=== PATIENT | female | born 1990 | race Caucasian/White ===

== ENCOUNTER 2017-11-25 07:13 | Inpatient (IN) | payer OTHER ==
[~2017-11-25] VITALS: Ht 170.2 cm; Wt 80.7 kg
[~2017-11-25 07:13] MED LIST: ACET-1718 PO; GING250C3 PO; IBUP800T37 PO; LACT1CAP6 PO; ONDA4TAB PO; ONDA4TAB97 PO; POLY17PO25 PO; PREN-127 PO; PROM25SU9 RC
[2017-12-08] MEDS ORDERED: DLR(*) 1000 ML BAG 1,000 ML IV SCH ×2 (04:59)
[2017-12-08] MEDS ORDERED: LR(*) 1000 ML BAG 1,000 ML IV SCH (04:59)
[2017-12-08] MEDS ORDERED: OXYTOCIN 30 UNIT/D5LR 500 ML 500 ML IV PRN ×3 (04:59→07:20)
[2017-12-08] MEDS ORDERED: FAMOTIDINE(*) 20MG/50ML PREMIX 50 ML IVPB PRN (04:59)
[2017-12-08] MEDS ORDERED: ONDANSETRON 4 MG/2 ML VIAL IVP PRN (05:00)
[2017-12-08] MEDS ORDERED: LIDOCAINE/SOD BICARB 8.4% SYR SC PRN (05:00)
[2017-12-08] MEDS ORDERED: TERBUTALINE SULF 1 MG/ML VIAL SUBQ PRN (05:00)
[2017-12-08] MEDS ORDERED: METOCLOPRAMIDE 10 MG/2 ML SDV IVP PRN (05:00)
[2017-12-08] MEDS ORDERED: MISOPROSTOL 25 MCG CAP PV PRN (05:00)
[2017-12-08] MEDS ORDERED: cefOXitin/DEX(*) 2GM/50ML PREM 50 ML IVPB PRN (05:00)
[2017-12-08] MEDS ORDERED: LIDOCAINE 1% LOCAL 300 MG/30ML INJ PRN (05:00)
[2017-12-08] MEDS ORDERED: ACETAMINOPHEN 500 MG TAB PO PRN (05:00)
[2017-12-08] MEDS ORDERED: fentaNYL CITR 100 MCG/2 ML AMP IVP PRN (05:00)
[2017-12-08 06:00] VITALS: BP 122/67; Ht 170.2 cm; Wt 80.7 kg
[2017-12-08 06:14] LABS: PLATELET COUNT, AUTOMATED 121 K/uL (150-450)
--- NOTE | 2017-12-08 07:14 | History & Physical ---
History of Present Illness Age of Patient: 27 : 3 Para or TPAL: 2002 EDC per LMP: Nov 25, 2017 Estimated Gestational Age: 41.6 Chief Complaint Uterine contractions. History of Present Illness The patient is a 27 year old 3 para 2001 admitted at 41 6/7 weeks estimated gestational age with an estimated date of delivery 11/25/17. Patient is admitted with complaint of contractions. No vaginal bleeding. Good movement and occasional contractions. She was evaluated for active labor. She had an uncomplicated course. Her record was reviewed. History Allergies: Coded Allergies: No Known Drug Allergies (Unverified , 11/12/15) Social History: No T/E/D. . Med Rec Home Meds Reported Medications Ondansetron Hcl (ZOFRAN) 4 Mg Tablet, 4 MG PO Q12H, TAB 11/17/17 Yesenia Root (YESENIA) 250 Mg Capsule, 250 MG PO, CAPSULE 11/17/17 Polyethylene Glycol 3350 (MIRALAX) 17 Gm Powd.pack, 17 GM PO PRN, PKT 11/12/15 Lactobacillus Combination No.4 (PROBIOTIC) 1 Each Capsule, 1 EACH PO QDAY, CAPSULE 11/12/15 Vits W-Ca,Fe,Fa(<1MG) ( VITAMINS) 1 Each Tablet, 1 EACH PO DAILY, TAB 11/12/15 Exam General Exam Cardiovascular: Regular Rate and Rhythm Respiratory: Clear to Auscultation Abdomen: Gravid - Non-Tender Extremities: No Edema Cervical Dialation: 6 (RN) Cervical Effacement (%): 100 Presentation: Vertex Uterine Contractions(Q min): 4 Fetus Heart Tones: 120 FHT Category: I Medical Decision Making Data Points Result Diagram: 12/08/17 0544 Assessment and Plan Problems: (1) Active labor at term Assessment & Plan: SPONTANEOUS LABOR, WILL MONITOR FOR CERVICAL CHANGE Copies to: ANGELINA VANCE MD, JOHN MD Dec 08, 2017 07:14
--- NOTE | 2017-12-08 10:33 | Labor Progress Note ---
Labor Subjective Progress Notes Subjective FEELING CONTRACTIONS Vaginal Discharge/Fluid: Clear Fluid Labor Pain: Moderate Labor Objective Vital Signs Vital Signs Date Time Temp Pulse Resp B/P (MAP) Pulse Ox O2 Delivery O2 Flow Rate FiO2 12/08/17 06:00 97.7 87 18 122/67 (85) 96 Room Air Cervical Dialation: 9 Cervical Effacement (%): 100 Cervical Consistency: Soft Cervical Position: Anterior Station: +1 Uterine Contractions(Q min): 4 Uterine Contraction Strength: Strong Fetus Heart Tones: 130 Heart Tone Variabilty: Moderate FHT Accelerations: 15X15 FHT Category: I Other Result Diagram: 12/08/17 0544 Assessment and Plan Problems: (1) Active labor at term Assessment & Plan: AROM CLEAR FLUID, ANTICIPATED VAGINAL DELIVERY ANGELINA VANCE MD Dec 08, 2017 10:33
[2017-12-08] MEDS ORDERED: METHYLERGONOVINE MAL 0.2MG/ML ONE (10:53)
--- NOTE | 2017-12-08 11:00 | OB Delivery Note ---
Delivery Note Vaginal Delivery Type: Spont. Vaginal Delivery Delivery Date: Dec 08, 2017 Delivery Time: 10:43 Estimated Gestational Age(wks): 41 6/7 Infant Sex: Male Weight (gms): 3984 Marcy Apgars: 1 Minute (9), 5 Minute Estimated Blood Loss: 400 Notes: SPONTANEOUS LABOR, AROM CLEAR FLUID PROGRESSED TO COMPLETE, PUSHED EFFECTIVELY, DELIVERY WITHOUT COMPLICATIONS. PITOCIN DELAYED ADMINISTRATION, METHERGINE GIVEN FOR ATONY, WITH MASSAGE UTERINE TONE IMPROVED. NO LACERATIONS TOLERATED WELL Forensic Manager in Attendence: No Copies to: ANGELINA VANCE MD, JOHN MD Dec 08, 2017 11:00
[2017-12-08] MEDS ORDERED: HYDR2TAB4 PO (11:01)
[2017-12-08] MEDS ORDERED: IBUP800T37 PO (11:01)
--- NOTE | 2017-12-08 11:16 | OB/GYN Discharge Summary ---
Discharge Summary Reason for Hosp/Final Diag: (1) Active labor at term (2) care following vaginal delivery Hospital Course & Plan: Vaginal delivery, on day 1, Pain controlled, Tolerating diet and activity. Baby . Normal lochia. Lates Vital Signs Vital Signs Date Time Temp Pulse Resp B/P (MAP) Pulse Ox O2 Delivery O2 Flow Rate FiO2 12/08/17 06:00 97.7 87 18 122/67 (85) 96 Room Air Weight (Pounds): 178 Result Diagram: 12/08/17 0544 Condition: Improved Discharge: Home, Self Assisted Meds Active Scripts Ibuprofen (IBUPROFEN) 800 Mg Tablet, 1 TAB PO Q8H, #30 TAB 0 Refills Take with food every 8 hours. Prov:ANGELINA HUNT MD 12/08/17 Hydromorphone Hcl (HYDROMORPHONE HCL) 2 Mg Tablet, 2-4 MG PO Q4H for PAIN, #20 TAB 0 Refills Prov:ANGELINA HUNT MD 12/08/17 Reported Medications Ondansetron Hcl (ZOFRAN) 4 Mg Tablet, 4 MG PO Q12H, TAB 11/17/17 Yesenia Root (YESENIA) 250 Mg Capsule, 250 MG PO, CAPSULE 11/17/17 Polyethylene Glycol 3350 (MIRALAX) 17 Gm Powd.pack, 17 GM PO PRN, PKT 11/12/15 Lactobacillus Combination No.4 (PROBIOTIC) 1 Each Capsule, 1 EACH PO QDAY, CAPSULE 11/12/15 Vits W-Ca,Fe,Fa(<1MG) ( VITAMINS) 1 Each Tablet, 1 EACH PO DAILY, TAB 11/12/15 Follow up with: Dr. Hunt [phone] Follow up in: 6 wks PP or PO Discharge Diet: As Tolerates Discharge Activity: Pelvic Rest Copies to: ANGELINA HUNT MD, JOHN MD Dec 08, 2017 11:16
[2017-12-08 12:28] VITALS: BP 123/60
[2017-12-08] MEDS ORDERED: MAGNESIUM HYDROXIDE* 30ML UDCP PO PRN (13:00)
[2017-12-08] MEDS ORDERED: BENZOCAINE 20% 60 ML BTL TP PRN (13:00)
[2017-12-08] MEDS ORDERED: GLYCERIN/WITCH HAZEL LEAF 1 PK TP PRN (13:00)
[2017-12-08] MEDS ORDERED: HYDROmorphone HCL 2 MG TAB PO PRN (13:00)
[2017-12-08] MEDS ORDERED: HYDROCORTISONE 2.5% CR 30GM TB PR PRN (13:00)
[2017-12-08] MEDS ORDERED: LANOLIN OINT 7 GM TUBE TP PRN (13:00)
[2017-12-08] MEDS ORDERED: ACETAMINOPHEN 325 MG TAB PO PRN (13:00)
[2017-12-08] MEDS: IBUPROFEN 800 MG TAB PO SCH ×2 (13:24→21:33)
[2017-12-08 13:25] VITALS: BP 102/52
[2017-12-08 17:00] VITALS: BP 118/62
[2017-12-08 19:15] VITALS: BP 104/57
[2017-12-08] MEDS: DOCUSATE CALCIUM 240 MG CAP PO SCH (20:49)
[2017-12-08 23:30] VITALS: BP 118/58
[2017-12-09 02:30] VITALS: BP 112/54
[2017-12-09] MEDS: IBUPROFEN 800 MG TAB PO SCH (06:05)
[2017-12-09 08:00] VITALS: BP 108/57
--- NOTE | 2017-12-09 08:07 | OB/GYN Progress Note ---
OB Subjective Progress Notes Subjective Pain controlled, Tolerating diet and activity. Baby . Normal lochia. 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 Baby . Normal lochia. ANGELINA VANCE MD Dec 09, 2017 08:07
[2017-12-09] MEDS: DOCUSATE CALCIUM 240 MG CAP PO SCH (08:21)
== END 2017-12-09 13:31 | disposition home or self-care (01) | DRG 775 ==
LOC: OB 12-08 04:58
PROVIDERS: ADMIT Student in an Organized Health Care Education/Training Program; ATTEND Student in an Organized Health Care Education/Training Program
PROC: 10E0XZZ Delivery of Products of Conception, External Approach (ICD-10-PCS; principal; 2017-12-08)
PROC: 10907ZC Drainage of Amniotic Fluid, Therapeutic from Products of Conception, Via Natural or Artificial Opening (ICD-10-PCS; 2017-12-08)
DX: O62.2 Other uterine inertia (principal); E73.9 Lactose intolerance, unspecified; Z37.0 Single live birth; Z3A.41 41 weeks gestation of pregnancy
CPT/HCPCS: 36415; 85025; 85027; 86850; 86900; 86901; J2210; J2405; J2590; J7120

== ENCOUNTER 2017-12-11 09:41 | Emergency (ER) | payer OTHER ==
[2017-12-08 06:00] VITALS: Wt 80.7 kg
[~2017-12-11 09:41] MED LIST changes: +HYDR2TAB4 PO
[2017-12-11] MEDS ORDERED: NS(*) 0.9% 1000 ML BAG 1,000 ML IV ONE (09:56)
--- NOTE | 2017-12-11 09:58 | EKG ---
[place] [facility] [place] AGUSTINA KNIGHT : [id number] MR: [id number] V: [id number] EXAM DATE: ORDERING PHYSICIAN: GIA VU TECHNOLOGIST: DANIA Hernandez Reason : NEURO Blood Pressure : / mmHG Vent. Rate : 067 BPM Atrial Rate : 067 BPM P-R Int : 142 ms QRS Dur : 082 ms QT Int : 380 ms P-R-T Axes : 069 058 061 degrees QTc Int : 401 ms Normal sinus rhythm Septal infarct , age undetermined Abnormal ECG No previous ECGs available Confirmed by ANGELINA BOATENG ([id number]) on 12/12/2017 4:08:18 AM Referred By: MIRELLA Confirmed By:ANGELINA BOATENG
--- NOTE | 2017-12-11 09:58 | ER Report ---
History and Physical Time Seen By MD: 09:53 HPI/ROS CHIEF COMPLAINT: Headache HISTORY OF PRESENT ILLNESS: 27-year-old female 3 days presents with headache and visual changes worse in the left eye feels typical for her migraines, positive photophobia, stroke alert was called in triage as patient was found slumped over in the chair at that time. She is awake and talking moving all extremities with no neuro deficits at the time of my evaluation. She complains of difficulty with vision in the left eye. She complains of headache generalized throbbing nonradiating. No fevers. No other concerns or complaints today. REVIEW OF SYSTEMS: Constitutional: No fever, no chills. Eyes: No discharge. ENT: No sore throat. Cardiovascular: No chest pain, no palpitations. Respiratory: No cough, no shortness of breath. Gastrointestinal: No abdominal pain, no vomiting. Genitourinary: No hematuria. Musculoskeletal: No back pain. Skin: No rashes. Neurological: No weakness Allergies: Coded Allergies: No Known Drug Allergies (Unverified , 12/11/17) Home Meds Active Scripts Ibuprofen (IBUPROFEN) 800 Mg Tablet, 1 TAB PO Q8H, #30 TAB 0 Refills Take with food every 8 hours. Prov:ANGELINA VANCE MD 12/08/17 Hydromorphone Hcl (HYDROMORPHONE HCL) 2 Mg Tablet, 2-4 MG PO Q4H for PAIN, #20 TAB 0 Refills Prov:ANGELINA VANCE MD 12/08/17 Reported Medications Ondansetron Hcl (ZOFRAN) 4 Mg Tablet, 4 MG PO Q12H, TAB 11/17/17 Yesenia Root (YESENIA) 250 Mg Capsule, 250 MG PO, CAPSULE 11/17/17 Polyethylene Glycol 3350 (MIRALAX) 17 Gm Powd.pack, 17 GM PO PRN, PKT 11/12/15 Lactobacillus Combination No.4 (PROBIOTIC) 1 Each Capsule, 1 EACH PO QDAY, CAPSULE 11/12/15 Vits W-Ca,Fe,Fa(<1MG) ( VITAMINS) 1 Each Tablet, 1 EACH PO DAILY, TAB 11/12/15 Hx Smoking: No Smoking Status: Never Smoker Exposure to Second Hand Smoke?: No Hx Substance Use Disorder: No Constitutional Vital Sign - Last 24 Hours 12/11/17 12/11/17 12/11/175/18 09:54 10:00 10:30 11:00 Temp 98.1 Pulse 68 78 72 Resp 16 14 14 16 B/P (MAP) 128/84 121/80 (94) 118/73 (88) 111/77 (88) Pulse Ox 94 95 92 96 O2 Delivery Room Air Physical Exam General Appearance: The patient is alert, has no immediate need for airway protection and no signs of toxicity. She appears to be slow to respond to commands Eyes: Pupils equal and round no pallor or injection. ENT, Mouth: Mucous membranes are moist. Respiratory: There are no retractions, lungs are clear to auscultation. Cardiovascular: Regular rate and rhythm. No murmurs gallops or rubs Gastrointestinal: Abdomen is soft and non tender, no masses, bowel sounds normal. Neurological: Cranial nerves II through XII intact, no pronator drift, No weakness 4 extremities 5 out of 5 flexion and extension finger abduction and thumb abduction and bilaterally 5 out of 5 dorsiflexion and plantar flexion and great toe extension bilaterally 5 out of 5 hip flexion bilaterally. Sensation intact in all extremities and bilateral face V1 through V3 distribution. Normal finger to nose, normal heel to larios no dysmetria. Skin: Warm and dry, no rashes. Musculoskeletal: Neck is supple non tender. Extremities are nontender, nonswollen and have full range of motion. No edema DIFFERENTIAL DIAGNOSIS: After history and physical exam differential diagnosis was considered for migraine, hemiplegic migraine, stroke is unlikely given her symptom pattern age and risk stratification Medical Decision Making Data Points Result Diagram: 12/11/17 1000 12/11/17 1000 Laboratory Hematology Test 12/11/17 10:00 Red Blood Count 4.64 M/uL (4.17-5.56) Mean Corpuscular Volume 91.2 fL (80.0-96.0) Mean Corpuscular Hemoglobin 31.1 pg (26.0-33.0) Mean Corpuscular Hemoglobin Concent 34.1 g/dL (32.0-36.0) Red Cell Distribution Width 13.0 % (11.5-14.5) Mean Platelet Volume 7.8 fL (7.2-11.1) Neutrophils (%) (Auto) 59.6 % (39.4-72.5) Lymphocytes (%) (Auto) 30.9 % (17.6-49.6) Monocytes (%) (Auto) 6.7 % (4.1-12.4) Eosinophils (%) (Auto) 1.9 % (0.4-6.7) Basophils (%) (Auto) 0.9 % (0.3-1.4) Nucleated RBC Relative Count (auto) 0.0 /100WBC Neutrophils # (Auto) 3.9 K/uL (2.0-7.4) Lymphocytes # (Auto) 2.0 K/uL (1.3-3.6) Monocytes # (Auto) 0.4 K/uL (0.3-1.0) Eosinophils # (Auto) 0.1 K/uL (0.0-0.5) Basophils # (Auto) 0.1 K/uL (0.0-0.1) Nucleated RBC Absolute Count (auto) 0.00 K/uL Prothrombin Time 12.5 seconds (12.0-14.4) Prothromb Time International Ratio 0.93 Activated Partial Thromboplast Time 25 seconds (23-35) Sodium Level 137 mmol/L (137-145) Potassium Level 3.9 mmol/L (3.5-5.0) Chloride Level 102 mmol/L (98-107) Carbon Dioxide Level 24 mmol/L (22-31) Blood Urea Nitrogen 13 mg/dl (7-18) Creatinine 0.90 mg/dl (0.52-1.04) Glomerular Filtration Rate Calc > 60.0 Random Glucose 73 mg/dl (75-110) Calcium Level 9.2 mg/dl (8.4-10.2) Chemistry Test 12/11/17 10:00 White Blood Count 6.6 k/uL (4.5-11.0) Red Blood Count 4.64 M/uL (4.17-5.56) Hemoglobin 14.5 g/dL (12.0-16.0) Hematocrit 42.3 % (34.0-47.0) Mean Corpuscular Volume 91.2 fL (80.0-96.0) Mean Corpuscular Hemoglobin 31.1 pg (26.0-33.0) Mean Corpuscular Hemoglobin Concent 34.1 g/dL (32.0-36.0) Red Cell Distribution Width 13.0 % (11.5-14.5) Platelet Count 187 K/uL (150-450) Mean Platelet Volume 7.8 fL (7.2-11.1) Neutrophils (%) (Auto) 59.6 % (39.4-72.5) Lymphocytes (%) (Auto) 30.9 % (17.6-49.6) Monocytes (%) (Auto) 6.7 % (4.1-12.4) Eosinophils (%) (Auto) 1.9 % (0.4-6.7) Basophils (%) (Auto) 0.9 % (0.3-1.4) Nucleated RBC Relative Count (auto) 0.0 /100WBC Neutrophils # (Auto) 3.9 K/uL (2.0-7.4) Lymphocytes # (Auto) 2.0 K/uL (1.3-3.6) Monocytes # (Auto) 0.4 K/uL (0.3-1.0) Eosinophils # (Auto) 0.1 K/uL (0.0-0.5) Basophils # (Auto) 0.1 K/uL (0.0-0.1) Nucleated RBC Absolute Count (auto) 0.00 K/uL Prothrombin Time 12.5 seconds (12.0-14.4) Prothromb Time International Ratio 0.93 Activated Partial Thromboplast Time 25 seconds (23-35) Glomerular Filtration Rate Calc > 60.0 Calcium Level 9.2 mg/dl (8.4-10.2) Coagulation Test 12/11/17 10:00 Prothrombin Time 12.5 seconds Prothromb Time International Ratio 0.93 Activated Partial Thromboplast Time 25 seconds EKG/Imaging EKG Interpretation EKG my read normal sinus rhythm rate of 67 normal IA QRS and QTc intervals no ST or T-wave changes to suggest ischemia or infarction overall normal EKG 2017 at 9:51 AM ED Course/Re-evaluation ED Course repeat neuro exam: neg for weakness; discussed home care, migraine treatment and reasons to return (focal weakness, failure to improve, other new signs/ symptoms). She and comfortable with this plan and do not feel she needs an MRI at this time. Decision to Disposition Date: Dec 11, 2017 Decision to Disposition Time: 11:30 Depart Departure Latest Vital Signs Vital Signs Date Time Temp Pulse Resp B/P (MAP) Pulse Ox O2 Delivery O2 Flow Rate FiO2 12/11/17 11:00 72 16 111/77 (88) 96 12/11/17 09:54 98.1 Room Air Impression: Primary Impression: Migraine headache Condition: Improved Disposition: HOME OR SELF-CARE New Scripts Butalbital/Aspirin/Caffeine (FIORINAL 50-325-40 MG CAPSULE) 1 Each Capsule 1 EACH PO Q4H for PAIN for 10 Days, #20 CAPSULE Prov: GIA VU MD 12/11/17 Patient Instructions: Migraine Headache (ED) Problem Qualifiers Primary Impression: Migraine headache Migraine type: hemiplegic Status migrainosus presence: without status migrainosus Intractability: not intractable Qualified Codes: G43.409 - Hemiplegic migraine, not intractable, without status migrainosus GIA VU MD Dec 11, 2017 09:58
[2017-12-11] MEDS ORDERED: METOCLOPRAMIDE 10 MG/2 ML SDV IVP ONE (10:00)
[2017-12-11] MEDS ORDERED: diphenhydrAMINE 50 MG/ML VIAL IVP ONE (10:00)
[2017-12-11 10:14] LABS: PLATELET COUNT, AUTOMATED 187 K/uL (150-450)
--- NOTE | 2017-12-11 10:25 | RADIOLOGY IMAGING REPORT ---
FACILITY: [facility] PATIENT NAME: Sridevi Watt : 1990 MR: [id number] V: [id number] EXAM DATE: ORDERING PHYSICIAN: GIA VU TECHNOLOGIST: Location: [facility] Patient: Sridevi Watt : 1990 Visit/Account:[id number] Date of Sevice: 12/11/2017 EXAMINATION: CT Head without intravenous contrast HISTORY: neurologic deficits. TECHNIQUE: Axial images were obtained from the skull base to the vertex without intravenous contrast . Sagittal and coronal reformatted images are also submitted. One of the following dose optimization techniques was utilized in the performance of this exam: Autom ated exposure control; adjustment of the mA and/or kV according to the patient's size; or use of an i terative reconstruction technique. Specific details can be referenced in the facility's radiology C T exam operational policy. COMPARISON: None. FINDINGS: Brain volume: Normal. Ventricles: Negative. Acute ischemic changes: None. Hemorrhage: None. Masses / edema: None. Ferris-white: Negative. White matter: Negative. Vessels: Negative. Extra-axial: Negative. Calvarium / skull base: Negative. Visualized sinuses / orbits: Negative. IMPRESSION: Normal noncontrast head CT. Report Dictated By: Kush Bautista MD at 12/11/2017 10:06 AM Report E-Signed By: Kush Bautista MD at 12/11/2017 10:20 AM WSN:[id number]
[2017-12-11 10:27] LABS: INR 0.93
[2017-12-11 11:30] VITALS: BP 107/69
[2017-12-11] MEDS ORDERED: BUTA1CAP51 PO (11:31)
== END 2017-12-11 11:42 | disposition home or self-care (01) ==
LOC: ER 09:58
DX: G43.409 Hemiplegic migraine, not intractable, without status migrainosus (principal); R94.31 Abnormal electrocardiogram [ECG] [EKG]
CPT/HCPCS: 70450; 85025; 85610; 85730; 93005; 96361; 96374; 96375; 99284; J1200; J2765; J7030; 82310; 82374; 82435; 82565; 82947; 84132; 84295; 84520

== ENCOUNTER → 2018-08-20 | Outpatient (CLI) | payer OTHER ==
[2017-12-08 06:00] VITALS: BMI 27.9
[~2018-08-20] MED LIST changes: +BUTA1CAP51 PO; +IBUP600T22 PO
--- NOTE | 2018-08-20 16:42 | RADIOLOGY IMAGING REPORT ---
FACILITY: [facility] PATIENT NAME: Sridevi Watt : 1990 MR: [id number] V: [id number] EXAM DATE: ORDERING PHYSICIAN: JOSEP HORTON TECHNOLOGIST: Location: [facility] Patient: Sridevi Watt : 1990 Visit/Account:[id number] Date of Sevice: 08/20/2018 Cervical spine minimum 4 views: HISTORY: Neck pain, fall/hit head on 08/18/2018 FINDINGS: 5 views were obtained of the cervical spine. There is loss of normal cervical lordosis whi ch may be indicative of muscle spasm. Alignment is otherwise anatomic. Disc spaces are well-maintai anil. Vertebral body height is preserved. Facets are in anatomic alignment without evidence of facet arthropathy. Oblique films, there is no foraminal narrowing. Odontoid view is unremarkable. No ev idence of odontoid or C1 fracture. Prevertebral soft tissues are normal. IMPRESSION: 1. No evidence of acute osseous abnormality. 2. Loss of normal lordosis, query muscle spasm. 3. No significant osteoarthritic changes. Report Dictated By: Mayte Gutierrez MD at 08/20/2018 4:35 PM Report E-Signed By: Mayte Gutierrez MD at 08/20/2018 4:38 PM WSN:[email or web address]
== END ==
LOC: RAD 14:47
PROVIDERS: ATTEND Nurse Practitioner Primary Care
DX: M54.2 Cervicalgia (principal); S09.90XA Unspecified injury of head, initial encounter; W19.XXXA Unspecified fall, initial encounter
CPT/HCPCS: 72050

== ENCOUNTER 2018-08-21 12:10 | Emergency (ER) | payer OTHER ==
[2017-12-08 06:00] VITALS: Wt 63.5 kg
[~2018-08-21 12:10] MED LIST changes: -IBUP600T22 PO
--- NOTE | 2018-08-21 12:26 | ER Report ---
History and Physical Time Seen By MD: 12:26 HPI/ROS CHIEF COMPLAINT: Concussion HISTORY OF PRESENT ILLNESS: 27-year-old female patient presents to emergency room with complaint of a concussion. Patient states that on Monday she was getting up from a sitting position. She states she took couple steps and felt really lightheaded. She states she blacked out and fell backwards hitting her head on the hardwood floor. Patient is unsure of any loss of consciousness. She states that she did rest Monday night and Monday. She did see a primary care provider on Monday. She is told she had a concussion at that time. She states that she went to see her chiropractor, who she's been seeing for blacking out. She states that she was directed to come to the emergency room for further evaluation. Patient states that she's noted that she is very slow when speaking. She states she is also been dizzy, had increased irritability, has been nauseated. She has not vomited. Patient states she is concerned she feels like she is getting worse and not improving. REVIEW OF SYSTEMS: Respiratory: No cough, no dyspnea. Cardiovascular: No chest pain, no palpitations. Gastrointestinal: As noted above Musculoskeletal: No back pain. Allergies: Coded Allergies: No Known Drug Allergies (Unverified , 08/21/18) Home Meds Active Scripts Ibuprofen (IBUPROFEN) 600 Mg Tablet, 1 TAB PO TID, #21 TAB Prov:NAVARRO RYAN 08/21/18 Ibuprofen (IBUPROFEN) 800 Mg Tablet, 1 TAB PO Q8H, #30 TAB 0 Refills Take with food every 8 hours. Prov:ANGELINA VANCE MD 12/08/17 Discontinued Reported Medications Mi Root (MI) 250 Mg Capsule, 250 MG PO, CAPSULE 11/17/17 Lactobacillus Combination No.4 (PROBIOTIC) 1 Each Capsule, 1 EACH PO QDAY, CAPSULE 11/12/15 Vits W-Ca,Fe,Fa(<1MG) ( VITAMINS) 1 Each Tablet, 1 EACH PO DA ARLENE, TAB 11/12/15 Ondansetron Hcl (ZOFRAN) 4 Mg Tablet, 4 MG PO Q12H, TAB 11/17/17 Polyethylene Glycol 3350 (MIRALAX) 17 Gm Powd.pack, 17 GM PO PRN, PKT 11/12/15 Discontinued Scripts Butalbital/Aspirin/Caffeine (FIORINAL 50-325-40 MG CAPSULE) 1 Each Capsule, 1 EACH PO Q4H for PAIN for 10 Days, #20 CAPSULE Prov:GIA VU MD 12/11/17 Hydromorphone Hcl (HYDROMORPHONE HCL) 2 Mg Tablet, 2-4 MG PO Q4H for PAIN, #20 T AB 0 Refills Prov:AGNELINA VANCE MD 12/08/17 Past Medical/Surgical History Patient has a past medical history of migraines, fractures. Patient surgical history wisdom teeth removal. Reviewed Nurses Notes: Yes Hx Smoking: No Smoking Status: Never Smoker Exposure to Second Hand Smoke?: No Hx Substance Use Disorder: No Constitutional Vital Sign - Last 24 Hours 08/21/18 08/21/18 08/21/18 08/21/18 12:23 12:26 12:30 12:40 Pulse 68 69 Resp 12 9 B/P (MAP) 121/80 (94) 121/80 115/65 (82) Pulse Ox 93 98 O2 Delivery Room Air 08/21/18 08/21/18 08/21/18 08/21/18 12:45 12:55 13:00 13:10 Pulse 65 67 Resp 4 4 B/P (MAP) 117/76 (90) 103/65 (78) Pulse Ox 97 97 08/21/18 08/21/18 08/21/18 08/21/18 13:15 13:25 13:30 13:45 Pulse 71 65 Resp 4 5 B/P (MAP) 101/59 (73) 100/60 (73) 98/61 (73) Pulse Ox 97 98 08/21/18 08/21/18 08/21/18 08/21/18 14:00 14:15 14:30 14:31 Pulse 72 77 Resp 16 B/P (MAP) 97/58 (71) 105/61 (76) 104/58 (73) Pulse Ox 97 08/21/18 08/21/18 08/21/18 08/21/18 15:00 15:05 15:30 15:35 Pulse 71 73 69 Resp 13 13 11 B/P (MAP) 98/61 (73) 94/55 (68) Pulse Ox 96 96 96 Physical Exam General Appearance: The patient is alert, has no immediate need for airway protection and no current signs of toxicity. Eyes: Pupils equal and round no injection. Extraocular movements intact. Respiratory: Chest is non tender, lungs are clear to auscultation. Cardiac: regular rate and rhythm Gastrointestinal: Abdomen is soft and non tender, no masses, bowel sounds normal. Musculoskeletal: Neck: Neck is tender to palpation. Extremities have full range of motion and are non tender. Skin: No rashes or lesions. Neuro: Patient is alert and oriented 4, cranial nerves II through XII grossly intact. Patient was able to complete serial sevens and 3 word recall, 3/3 at zero minutes and 3/3 at 5 minutes. Patient was slow to respond. She never had any difficulty finding the right word, however it did take her longer to get the words formed and out of her mouth. DIFFERENTIAL DIAGNOSIS: After history and physical exam differential diagnosis was considered for concussion, intracranial hemorrhage, postconcussive syndrome. Medical Decision Making Data Points Result Diagram: 08/21/18 1307 08/21/18 1307 Laboratory Hematology Test 08/21/18 13:07 08/21/18 14:30 Red Blood Count 4.98 M/uL (4.17-5.56) Mean Corpuscular Volume 92.0 fL (80.0-96.0) Mean Corpuscular Hemoglobin 31.0 pg (26.0-33.0) Mean Corpuscular Hemoglobin Concent 33.7 g/dL (32.0-36.0) Red Cell Distribution Width 12.8 % (11.5-14.5) Mean Platelet Volume 7.9 fL (7.2-11.1) Neutrophils (%) (Auto) 62.2 % (39.4-72.5) Lymphocytes (%) (Auto) 28.9 % (17.6-49.6) Monocytes (%) (Auto) 6.4 % (4.1-12.4) Eosinophils (%) (Auto) 1.4 % (0.4-6.7) Basophils (%) (Auto) 1.1 % (0.3-1.4) Nucleated RBC Relative Count (auto) 0.0 /100WBC Neutrophils # (Auto) 3.0 K/uL (2.0-7.4) Lymphocytes # (Auto) 1.4 K/uL (1.3-3.6) Monocytes # (Auto) 0.3 K/uL (0.3-1.0) Eosinophils # (Auto) 0.1 K/uL (0.0-0.5) Basophils # (Auto) 0.1 K/uL (0.0-0.1) Nucleated RBC Absolute Count (auto) 0.00 K/uL Prothrombin Time 13.2 seconds (12.0-14.4) Prothromb Time International Ratio 1.00 Activated Partial Thromboplast Time 29 seconds (23-35) Sodium Level 140 mmol/L (137-145) Potassium Level 4.1 mmol/L (3.5-5.0) Chloride Level 106 mmol/L (98-107) Carbon Dioxide Level 22 mmol/L (22-31) Blood Urea Nitrogen 17 mg/dl (7-18) Creatinine 0.80 mg/dl (0.52-1.04) Glomerular Filtration Rate Calc > 60.0 Random Glucose 75 mg/dl (75-110) Calcium Level 9.6 mg/dl (8.4-10.2) Total Bilirubin 0.6 mg/dl (0.2-1.3) Aspartate Amino Transf (AST/SGOT) 23 U/L (0-35) Alanine Aminotransferase (ALT/SGPT) 30 U/L (0-56) Alkaline Phosphatase 43 U/L (0-126) Total Protein 7.8 g/dl (6.3-8.2) Albumin 4.6 g/dl (3.5-5.0) Human Chorionic Gonadotropin, Qual Negative (NEGATIVE) Urine Color Yellow Urine Clarity Clear Urine pH 5.0 pH (4.8-9.5) Urine Specific Chaplin 1.010 Urine Protein Negative mg/dL (NEGATIVE) Urine Glucose (UA) Negative mg/dL (NEGATIVE) Urine Ketones 20 mg/dL (NEGATIVE) Urine Blood Moderate (NEGATIVE) Urine Nitrite Negative (NEGATIVE) Urine Bilirubin Negative (NEGATIVE) Urine Urobilinogen Negative mg/dL (0.2-1.9) Urine Leukocyte Esterase Negative (NEGATIVE) Urine RBC 10 /HPF (0-2/HPF) Urine WBC 1 /HPF (0-5/HPF) Urine Squamous Epithelial Cells None /LPF (</=FEW) Urine Bacteria Negative /HPF (NONE-FEW) Urine Mucus None /HPF (NONE-FEW) Chemistry Test 08/21/18 13:07 08/21/18 14:30 White Blood Count 4.8 k/uL (4.5-11.0) Red Blood Count 4.98 M/uL (4.17-5.56) Hemoglobin 15.4 g/dL (12.0-16.0) Hematocrit 45.8 % (34.0-47.0) Mean Corpuscular Volume 92.0 fL (80.0-96.0) Mean Corpuscular Hemoglobin 31.0 pg (26.0-33.0) Mean Corpuscular Hemoglobin Concent 33.7 g/dL (32.0-36.0) Red Cell Distribution Width 12.8 % (11.5-14.5) Platelet Count 204 K/uL (150-450) Mean Platelet Volume 7.9 fL (7.2-11.1) Neutrophils (%) (Auto) 62.2 % (39.4-72.5) Lymphocytes (%) (Auto) 28.9 % (17.6-49.6) Monocytes (%) (Auto) 6.4 % (4.1-12.4) Eosinophils (%) (Auto) 1.4 % (0.4-6.7) Basophils (%) (Auto) 1.1 % (0.3-1.4) Nucleated RBC Relative Count (auto) 0.0 /100WBC Neutrophils # (Auto) 3.0 K/uL (2.0-7.4) Lymphocytes # (Auto) 1.4 K/uL (1.3-3.6) Monocytes # (Auto) 0.3 K/uL (0.3-1.0) Eosinophils # (Auto) 0.1 K/uL (0.0-0.5) Basophils # (Auto) 0.1 K/uL (0.0-0.1) Nucleated RBC Absolute Count (auto) 0.00 K/uL Prothrombin Time 13.2 seconds (12.0-14.4) Prothromb Time International Ratio 1.00 Activated Partial Thromboplast Time 29 seconds (23-35) Glomerular Filtration Rate Calc > 60.0 Calcium Level 9.6 mg/dl (8.4-10.2) Total Bilirubin 0.6 mg/dl (0.2-1.3) Aspartate Amino Transf (AST/SGOT) 23 U/L (0-35) Alanine Aminotransferase (ALT/SGPT) 30 U/L (0-56) Alkaline Phosphatase 43 U/L (0-126) Total Protein 7.8 g/dl (6.3-8.2) Albumin 4.6 g/dl (3.5-5.0) Human Chorionic Gonadotropin, Qual Negative (NEGATIVE) Urine Color Yellow Urine Clarity Clear Urine pH 5.0 pH (4.8-9.5) Urine Specific Chaplin 1.010 Urine Protein Negative mg/dL (NEGATIVE) Urine Glucose (UA) Negative mg/dL (NEGATIVE) Urine Ketones 20 mg/dL (NEGATIVE) Urine Blood Moderate (NEGATIVE) Urine Nitrite Negative (NEGATIVE) Urine Bilirubin Negative (NEGATIVE) Urine Urobilinogen Negative mg/dL (0.2-1.9) Urine Leukocyte Esterase Negative (NEGATIVE) Urine RBC 10 /HPF (0-2/HPF) Urine WBC 1 /HPF (0-5/HPF) Urine Squamous Epithelial Cells None /LPF (</=FEW) Urine Bacteria Negative /HPF (NONE-FEW) Urine Mucus None /HPF (NONE-FEW) Coagulation Test 08/21/18 13:07 Prothrombin Time 13.2 seconds Prothromb Time International Ratio 1.00 Activated Partial Thromboplast Time 29 seconds Urinalysis Test 08/21/18 14:30 Urine Color Yellow Urine Clarity Clear Urine pH 5.0 pH (4.8-9.5) Urine Specific Chaplin 1.010 Urine Protein Negative mg/dL (NEGATIVE) Urine Glucose (UA) Negative mg/dL (NEGATIVE) Urine Ketones 20 mg/dL (NEGATIVE) Urine Blood Moderate (NEGATIVE) Urine Nitrite Negative (NEGATIVE) Urine Bilirubin Negative (NEGATIVE) Urine Urobilinogen Negative mg/dL (0.2-1.9) Urine Leukocyte Esterase Negative (NEGATIVE) Urine RBC 10 /HPF (0-2/HPF) Urine WBC 1 /HPF (0-5/HPF) Urine Squamous Epithelial Cells None /LPF (</=FEW) Urine Bacteria Negative /HPF (NONE-FEW) Urine Mucus None /HPF (NONE-FEW) EKG/Imaging Imaging EXAMINATION: CT Cervical spine without intravenous contrast HISTORY: Fall 3 days ago COMPARISON: None. TECHNIQUE: Axial images were obtained from the skull base through the upper thoracic spine without IV contrast administration. Coronal and sagittal reformatted images were generated from the axial source data. One of the following dose optimization techniques was utilized in the performance of this exam: automated exposure control; adjustment of the mA and/or kV according to patient size; or use of iterative reconstruction technique. Specific details can be referenced in the facility's radiology CT exam operational policy. 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 Additional likely congenital concave endplate deformities at T1. No acute fracture identified. Alignment: Normal. Disc Spaces: Normal. Soft tissues: Normal. Visualized upper chest: Normal. IMPRESSION: No acute fracture or acute abnormality. Report Dictated By: Jhonny Villagomez MD at 08/21/2018 2:31 PM Report E-Signed By: Jhonny Villagomez MD at 08/21/2018 2:35 PM HEAD W/O CONTRAST EXAMINATION: CT head/brain without contrast HISTORY: neuro deficits. TECHNIQUE: Contiguous axial images were obtained from the skull base to the vertex without intravenous contrast. One of the following dose optimization techniques was utilized in the performance of this exam: Automated exposure control; adjustment of the mA and/or kV according to the patient's size; or use of an iterative reconstruction technique. Specific details can be referenced in the facility's radiology CT exam operational policy. COMPARISON STUDIES: 12/11/2017 FINDINGS: Ventricles/sulci/fissures: Midline in position and normal in configuration. Masses/hemorrhage/midline shift: No hemorrhage. No mass effect. White matter: No white matter edema Ferris-white differentiation: Well-maintained. No cortical mass lesion or abnormal attenuation. Extra-axial spaces: No subdural or epidural fluid collections. No subarachnoid blood Dural venous sinuses/arterial structures: Negative Skull base/calvarium: Negative Visualized mastoid air cells/paranasal sinuses: Negative IMPRESSION: 1. Negative CT scan of the head for acute intracranial pathology. No interval change when compared to the previous examination. Report Dictated By: Kevin Madrigal MD at 08/21/2018 2:13 PM Report E-Signed By: Kevin Madrigal MD at 08/21/2018 2:16 PM ED Course/Re-evaluation ED Course Patient was admitted to exam room, history and physical obtained. Differential diagnoses were considered. On examination lungs are clear, heart is regular, abdomen is soft and nontender. Patient is alert and oriented 4, cranial nerves II through XII grossly intact. She did have a slow responses to questions. She didn't struggle finding the right words, but did struggle getting the words have her mouth. A CT scan of the head as well as cervical spine were done. A CBC, CMP, PT, PTT, hCG were done. Lab results were unremarkable. I discussed case with Dr. Glass, neurologist at [facility], he felt there is no need to move forward with an MRI, however he did recommend the patient follow-up with neurology. I discussed this with the patient and her . We'll go ahead and discharge him home at this time. We'll start her on ibuprofen 600 mg 3 times a day. We will have her take that and follow-up with neurology. I did give her information for Dr. Enriquez who comes here to [place] as well as [facility] at [facility]. Patient verbalized understanding and agreement with plan. Decision to Disposition Date: Aug 21, 2018 Decision to Disposition Time: 15:47 Depart Departure Latest Vital Signs Vital Signs Date Time Temp Pulse Resp B/P (MAP) Pulse Ox O2 Delivery O2 Flow Rate FiO2 08/21/18 15:35 69 11 96 08/21/18 15:30 94/55 (68) 08/21/18 12:26 Room Air Impression: Primary Impression: Postconcussion syndrome Condition: Condition Unchanged Disposition: HOME OR SELF-CARE New Scripts Ibuprofen (IBUPROFEN) 600 Mg Tablet 1 TAB PO TID, #21 TAB Prov: NAVARRO RYAN 08/21/18 Patient Instructions: Post Concussion Syndrome (ED) Additional Instructions: Get plenty of rest. Limit activity by pain. Limit TV and computer time. Monitor for confusion, increased irritability, uncontrollable vomiting, worsening headache or difficulty to arouse. Return to the ER if those are to occur. Follow up with neurology, call to make an appointment. Dr. Enriquez [address] [facility] [address] [place], [place] NAVARRO RYAN Aug 21, 2018 12:26
[2018-08-21] MEDS ORDERED: NS(*) 0.9% 1000 ML BAG 1,000 ML IV ONE (12:47)
[2018-08-21] MEDS ORDERED: ONDANSETRON 4 MG/2 ML VIAL IVP ONE (12:50)
--- NOTE | 2018-08-21 13:03 | EKG ---
FACILITY: [facility] PATIENT NAME: AGUSTINA KNIGHT : [id number] MR: [id number] V: [id number] EXAM DATE: ORDERING PHYSICIAN: NAVARRO RYAN TECHNOLOGIST: Test Reason : passing out, fall Blood Pressure : / mmHG Vent. Rate : 066 BPM Atrial Rate : 066 BPM P-R Int : 146 ms QRS Dur : 082 ms QT Int : 412 ms P-R-T Axes : 073 057 055 degrees QTc Int : 431 ms Normal sinus rhythm Possible Left atrial enlargement No ST-T abnormalities When compared with ECG of 11-DEC-2017 09:51, No significant change was found Confirmed by MARTIN GONZALEZ ([id number]) on 08/21/2018 4:33:50 PM Referred By: Confirmed By:MARTIN GONZALEZ
[2018-08-21 13:17] LABS: PLATELET COUNT, AUTOMATED 204 K/uL (150-450)
--- NOTE | 2018-08-21 14:20 | RADIOLOGY IMAGING REPORT ---
FACILITY: [facility] PATIENT NAME: Sridevi Watt : 1990 MR: [id number] V: [id number] EXAM DATE: ORDERING PHYSICIAN: NAVARRO RYAN TECHNOLOGIST: Location: [facility] Patient: Sridevi Watt : 1990 Visit/Account:[id number] Date of Sevice: 08/21/2018 HEAD W/O CONTRAST EXAMINATION: CT head/brain without contrast HISTORY: neuro deficits. TECHNIQUE: Contiguous axial images were obtained from the skull base to the vertex without intravenou s contrast. One of the following dose optimization techniques was utilized in the performance of this exam: Autom ated exposure control; adjustment of the mA and/or kV according to the patient's size; or use of an i terative reconstruction technique. Specific details can be referenced in the facility's radiology C T exam operational policy. COMPARISON STUDIES: 12/11/2017 FINDINGS: Ventricles/sulci/fissures: Midline in position and normal in configuration. Masses/hemorrhage/midline shift: No hemorrhage. No mass effect. White matter: No white matter edema Ferris-white differentiation: Well-maintained. No cortical mass lesion or abnormal attenuation. Extra-axial spaces: No subdural or epidural fluid collections. No subarachnoid blood Dural venous sinuses/arterial structures: Negative Skull base/calvarium: Negative Visualized mastoid air cells/paranasal sinuses: Negative IMPRESSION: 1. Negative CT scan of the head for acute intracranial pathology. No interval change when compared to the previous examination. Report Dictated By: Kevin Madrigal MD at 08/21/2018 2:13 PM Report E-Signed By: Kevin Madrigal MD at 08/21/2018 2:16 PM WSN:[email or web address]
--- NOTE | 2018-08-21 14:39 | RADIOLOGY IMAGING REPORT ---
FACILITY: [facility] PATIENT NAME: Sridevi Watt : 1990 MR: [id number] V: [id number] EXAM DATE: ORDERING PHYSICIAN: NAVARRO RYAN TECHNOLOGIST: Location: [facility] Patient: Sridevi Watt : 1990 Visit/Account:[id number] Date of Sevice: 08/21/2018 EXAMINATION: CT Cervical spine without intravenous contrast HISTORY: Fall 3 days ago COMPARISON: None. TECHNIQUE: Axial images were obtained from the skull base through the upper thoracic spine without I V contrast administration. Coronal and sagittal reformatted images were generated from the axial sour ce data. One of the following dose optimization techniques was utilized in the performance of this exam: autom ated exposure control; adjustment of the mA and/or kV according to patient size; or use of iterative reconstruction technique. Specific details can be referenced in the facility's radiology CT exam ope rational policy. 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 Ad ditional likely congenital concave endplate deformities at T1. No acute fracture identified. Alignment: Normal. Disc Spaces: Normal. Soft tissues: Normal. Visualized upper chest: Normal. IMPRESSION: No acute fracture or acute abnormality. Report Dictated By: Jhonny Villagomez MD at 08/21/2018 2:31 PM Report E-Signed By: Jhonny Villagomez MD at 08/21/2018 2:35 PM WSN:[email or web address]
[2018-08-21 15:30] VITALS: BP 94/55
[2018-08-21] MEDS ORDERED: IBUP600T22 PO (15:43)
== END 2018-08-21 16:00 | disposition home or self-care (01) ==
LOC: ER 12:24
DX: F07.81 Postconcussional syndrome (principal)
CPT/HCPCS: 70450; 72125; 81001; 84703; 85025; 85610; 85730; 93005; 96361; 96374; 99284; J2405; J7030; 82040; 82247; 82310; 82374; 82435; 82565; 82947; 84075; 84132; 84155; 84295; 84450; 84460; 84520

== ENCOUNTER → 2018-11-19 | Outpatient (REF) | payer OTHER ==
[2017-12-08 06:00] VITALS: BMI 27.9
[~2018-11-19] MED LIST changes: +IBUP600T22 PO
== END ==
LOC: ZZSENDIN 14:46
PROVIDERS: ATTEND Nurse Practitioner Family
DX: R19.7 Diarrhea, unspecified (principal)
CPT/HCPCS: 82274; 83630; 87045; 87177